=== PATIENT | female | born 1985 | race American Indian/Alaskan Native ===

== ENCOUNTER 2022-04-17 21:37 | Emergency (ER) | payer OTHER ==
[2022-04-17 23:39] LABS: Basophils # (Auto) 0.1 K/mm3 (0.0-0.1); Basophils % (Auto) 0.8 % (0.0-1.8); Eosinophils # (Auto) 0.1 K/mm3 (0.0-0.4); Eosinophils % (Auto) 1.4 % (0.0-4.3); Hematocrit 40.2 % (30.3-42.9); Lymphocytes # (Auto) 2.5 K/mm3 (1.2-5.4); Mean Corpuscular HGB Conc 32 % (30-34); Mean Corpuscular Volume 76 fl (79-97); Monocytes # (Auto) 0.9 K/mm3 (0.0-0.8); Monocytes % (Auto) 9.9 % (0.0-7.3); Platelet Count 308 K/mm3 (140-440); Red Blood Count 5.29 M/mm3 (3.65-5.03); Red Cell Distribution Width 16.4 % (13.2-15.2)
[2022-04-18 04:20] LABS: Bilirubin,Urine NEG (Negative); Blood,Urine LG (Negative); Color,Urine Yellow (Yellow); Urobilinogen,Urine < 2.0 mg/dL (<2.0)
[2022-04-18 04:39] LABS: Mucus,Urine FEW /HPF
[2022-04-18 04:40] LABS: RBC,Urine > 182.0 /HPF (0.0-6.0)
[2022-04-18] MEDS ORDERED: IBUPROFEN 800 MG TAB PO ONE (05:15)
[2022-04-18] MEDS ORDERED: medroxyPROGESTERone ACETATE 5 MG TAB PO STA (05:15)
--- NOTE | 2022-04-18 05:26 | Emergency Department Report ---
ED Female HPI - General Chief complaint: Vaginal Bleeding Stated complaint: PROLONG VAGINAL BLEEDING Time Seen by Provider: 04/18/22 05:14 Source: patient Mode of arrival: Ambulatory Limitations: No Limitations - History of Present Illness Initial comments: Patient 37-year-old female with history of a UB who presents for vaginal bleeding for the past month. Patient states she has been unable to see [facility] [employer] [facility]. Patient was scheduled for an uterine ablation however has been unable to get into see her doctor. Patient denies fevers or chills there is no nausea or vomiting. There is no history of anemias. Symptoms are rated at 4/10 and cramping. Patient is using 2 pads daily symptoms are relieved by nothing tried. MD Complaint: vaginal bleeding - Related Data Previous Rx's Medication Instructions Recorded Last Taken Type Ibuprofen [Motrin 800 MG tab] 800 mg PO Q8HR PRN #30 tablet 04/18/22 Unknown Rx medroxyPROGESTERone ACETATE 10 mg PO QDAY 7 Days #7 tab 04/18/22 Unknown Rx [Provera] Allergies Allergy/AdvReac Type Severity Reaction Status Date / Time Penicillins Allergy Unknown Verified 04/17/22 23:12 ED Review of Systems ROS: Stated complaint: PROLONG VAGINAL BLEEDING Other details as noted in HPI Constitutional: denies: chills, fever Eyes: denies: eye pain, eye discharge, vision change ENT: denies: ear pain, throat pain Respiratory: denies: cough, shortness of breath, wheezing Cardiovascular: denies: chest pain, palpitations Endocrine: no symptoms reported Gastrointestinal: abdominal pain. denies: nausea, vomiting (Bilateral lower), diarrhea, constipation Genitourinary: denies: urgency, dysuria, frequency, hematuria, discharge Musculoskeletal: back pain Skin: denies: rash, lesions Neurological: denies: headache, weakness, paresthesias Psychiatric: denies: anxiety, depression Hematological/Lymphatic: denies: easy bleeding, easy bruising ED Past Medical Hx - Medications Home Medications: Home Medications Medication Instructions Recorded Confirmed Last Taken Type Ibuprofen [Motrin 800 MG tab] 800 mg PO Q8HR PRN #30 tablet 04/18/22 Unknown Rx medroxyPROGESTERone ACETATE 10 mg PO QDAY 7 Days #7 tab 04/18/22 Unknown Rx [Provera] ED Physical Exam - General Limitations: No Limitations General appearance: alert, in no apparent distress - Head Head exam: Present: atraumatic, normocephalic - Eye Eye exam: Present: EOMI Pupils: Present: normal accommodation - ENT ENT exam: Present: mucous membranes moist - Neck Neck exam: Present: normal inspection, full ROM. Absent: tenderness - Respiratory Respiratory exam: Present: normal lung sounds bilaterally. Absent: respiratory distress, wheezes - Cardiovascular Cardiovascular Exam: Present: regular rate, normal rhythm, normal heart sounds. Absent: systolic murmur, diastolic murmur, rubs, gallop - GI/Abdominal GI/Abdominal exam: Present: soft, normal bowel sounds. Absent: distended, tenderness, guarding, rebound, rigid, bruit, hernia - Rectal Rectal exam: Present: deferred - Extremities Exam Extremities exam: Present: normal inspection, full ROM, normal capillary refill - Back Exam Back exam: Present: normal inspection, full ROM. Absent: CVA tenderness (R), CVA tenderness (L) - Neurological Exam Neurological exam: Present: alert, oriented X3, CN II-XII intact, normal gait - Psychiatric Psychiatric exam: Present: normal affect, normal mood - Skin Skin exam: Present: warm, dry, intact, normal color. Absent: rash ED Course Vital Signs 04/17/22 21:42 Temperature 98.6 F Pulse Rate 107 H Respiratory 18 Rate Blood Pressure 143/94 O2 Sat by Pulse 98 Oximetry ED Medical Decision Making - Lab Data Result diagrams: 04/17/22 23:23 Labs 04/17/22 04/17/22 04/17/22 23:23 23:23 23:23 WBC 8.8 RBC 5.29 H Hgb 13.0 Hct 40.2 MCV 76 L MCH 25 L MCHC 32 RDW 16.4 H Plt Count 308 Lymph % (Auto) 28.0 Day % (Auto) 9.9 H Eos % (Auto) 1.4 Baso % (Auto) 0.8 Lymph # (Auto) 2.5 Day # (Auto) 0.9 H Eos # (Auto) 0.1 Baso # (Auto) 0.1 Seg Neutrophils % 59.9 Seg Neutrophils # 5.2 HCG, Qual Negative HCG, Quant < 2 Urine Color Urine Turbidity Urine pH Ur Specific [place] Urine Protein Urine Glucose (UA) Urine Ketones Urine Blood Urine Nitrite Urine Bilirubin Urine Urobilinogen Ur Leukocyte Esterase Urine WBC (Auto) Urine RBC (Auto) U Epithel Cells (Auto) Urine Mucus Blood Type 04/17/22 04/17/22 23:23 Unknown WBC RBC Hgb Hct MCV MCH MCHC RDW Plt Count Lymph % (Auto) Day % (Auto) Eos % (Auto) Baso % (Auto) Lymph # (Auto) Day # (Auto) Eos # (Auto) Baso # (Auto) Seg Neutrophils % Seg Neutrophils # HCG, Qual HCG, Quant Urine Color Yellow Urine Turbidity Clear Urine pH 6.0 Ur Specific [place] 1.014 Urine Protein 30 mg/dl Urine Glucose (UA) Neg Urine Ketones Neg Urine Blood Lg Urine Nitrite Neg Urine Bilirubin Neg Urine Urobilinogen < 2.0 Ur Leukocyte Esterase Neg Urine WBC (Auto) 5.0 Urine RBC (Auto) > 182.0 U Epithel Cells (Auto) 2.0 Urine Mucus Few Blood Type A POSITIVE - Medical Decision Making Labs noted as above. This is acute on chronic problem for this patient plan occasions as prescribed, follow-up with [facility] [employer] [facility] in 2 to 3 days. Return to emergency department should symptoms worsen. Patient verbalized agreement and understanding with discharge plan. Patient DC'd home in stable condition at this time. Critical care attestation.: If time is entered above; I have spent that time in minutes in the direct care of this critically ill patient, excluding procedure time. ED Disposition Clinical Impression: Abnormal uterine bleeding (AUB) Disposition: 01 HOME / SELF CARE / HOMELESS Is pt being admited?: No Does the pt Need Aspirin: No Condition: Stable Instructions: Abnormal Uterine Bleeding Additional Instructions: Take medications as prescribed, follow-up with [employer] [employer] in 2 to 3 days. Return to emergency department should symptoms worsen Prescriptions: Ibuprofen [Motrin 800 MG tab] 800 mg PO Q8HR PRN #30 tablet PRN Reason: pain medroxyPROGESTERone ACETATE [Provera] 10 mg PO QDAY 7 Days #7 tab Referrals: ELDON QUINTERO MD [Staff Physician] - 3-5 Days Forms: Work/School Release Form(ED) Time of Disposition: 05:47
[2022-04-18 06:07] VITALS: BP 147/95
== END 2022-04-18 06:20 | disposition home or self-care (01) ==
LOC: ED 21:37
DX: N93.9 Abnormal uterine and vaginal bleeding, unspecified (principal); Z88.0 Allergy status to penicillin
CPT/HCPCS: 36415; 81001; 84702; 84703; 85025; 86900; 86901; 99283